=== PATIENT | female | born 1970 | race Caucasian/White ===

== ENCOUNTER 2016-10-03 13:15 | Emergency (ER) | payer SELFPAY ==
[~2016-10-03] VITALS: Ht 177.8 cm; Wt 79.5 kg
[~2016-10-03 13:15] MED LIST: AUGMENTIN875TAB PO; BENZONATATE200 MG PO; CEPHALEXIN500 M1 PO; CIPRO500 MG PO; CLARITIN10 M1 PO; CLARITIN10 MG OR; DOXYCYCL HYC100 MG PO; ENALAPRIL5 MG PO; MECLIZINE25 MG PO; MYCOLOG30 GM EX; NAPROXEN500 MG PO; NASONEX50 MCG/AC; NYSTATIN100000 M3 EX; PAXIL20 MG PO; PAXIL40 MG PO; PREDNISONE20 MG PO; RISPERDAL1 MG PO; TORADOL OR; TRAZODONE150 MG PO; TRIAM/NYSTAT TOP; ULTRAM50 M1 PO; XANAX0.5 MG PO
[2016-10-03 14:02] LABS: ALBUMIN 4.2 g/dL (3.2-5.0); ALKALINE PHOSPHATASE 30 u/l (38-126); BILIRUBIN, TOTAL 0.8 mg/dL (0.0-1.4); BUN 9 mg/dL (7-17); BUN/CREATININE RATIO 13 (12-20 (CALC)); CALCIUM 9.2 mg/dL (8.4-10.2); CARBON DIOXIDE 24 mmol/l (22-30); CHLORIDE 105 mmol/l (95-108); CREATININE 0.7 mg/dL (0.5-1.0); GFR > 60 ML/MIN (>=60 (CALC)); GFR FOR AFR.AMER. > 60 ML/MIN (>=60 (CALC)); GLUCOSE 140 mg/dL (65-105); SGOT/AST 47 u/l (14-36); SGPT/ALT 18 u/l (9-52); SODIUM 140 mmol/l (137-146); TOTAL PROTEIN 7.9 g/dL (6.3-8.2)
[2016-10-03 14:03] LABS: ANION GAP 16 (6-22 (CALC)); POTASSIUM 5.2 mmol/l (3.5-5.1)
[2016-10-03 14:14] LABS: MYOGLOBIN 18 ng/mL (0 - 62)
[2016-10-03 14:52] LABS: HEMATOCRIT 37.4 % (37.0-47.0); HEMOGLOBIN 12.8 g/dl (12.0-16.0); IMMATURE GRANULOCYTES 0.7 % (0.0-1.0); MEAN CELL VOLUME 82.7 fL CALC (80.0-100.0); MEAN CORPUSCULAR HGB 28.3 pG CALC (26.0-32.0); MEAN CORPUSCULAR HGB CONC 34.2 g/L CALC (32.0-36.0); NEUT# 5.07 thou/uL (2.00-7.15); RED BLOOD COUNT 4.52 mill/uL (4.20-5.60); RED CELL DISTRI WIDTH 15.8 % (11.5-15.5)
[2016-10-03] MEDS ORDERED: ASPIRIN 81 LOW81 MG PO (15:07)
[2016-10-03 15:14] VITALS: BP 154/76
== END 2016-10-03 15:26 | disposition left against medical advice (07) | DRG 313 ==
LOC: ED 13:15
PROVIDERS: Emergency Medicine
DX: R07.9 Chest pain, unspecified (principal); F32.9 Major depressive disorder, single episode, unspecified; F41.9 Anxiety disorder, unspecified; F17.210 Nicotine dependence, cigarettes, uncomplicated

== ENCOUNTER 2017-03-17 19:53 | Emergency (ER) | payer SELFPAY ==
[~2017-03-17] VITALS: Ht 177.8 cm; Wt 116.0 kg
[~2017-03-17 19:53] MED LIST changes: +ASPIRIN 81 LOW81 MG PO
[2017-03-17] MEDS ORDERED: ULTRAM50 M1 PO (21:13)
[2017-03-17 21:29] VITALS: BP 137/77
== END 2017-03-17 21:30 | disposition home or self-care (01) | DRG 556 ==
LOC: ED 19:53
DX: M79.672 Pain in left foot (principal)

== ENCOUNTER 2017-11-30 18:56 | Emergency (ER) | payer OTHER ==
[~2017-11-30] VITALS: Ht 177.8 cm; Wt 116.2 kg
[2017-11-30] MEDS ORDERED: VOLTAREN - GENE75 MG PO (19:28)
[2017-11-30 19:40] VITALS: BP 130/76
== END 2017-11-30 19:40 | disposition home or self-care (01) | DRG 563 ==
LOC: ED 18:56
DX: S39.012A Strain of muscle, fascia and tendon of lower back, initial encounter (principal); M16.12 Unilateral primary osteoarthritis, left hip; F17.210 Nicotine dependence, cigarettes, uncomplicated; X58.XXXA Exposure to other specified factors, initial encounter

== ENCOUNTER 2020-05-12 16:50 | Emergency (ER) | payer MEDICAID ==
[~2020-05-12] VITALS: Ht 177.8 cm; Wt 110.0 kg
[~2020-05-12 16:50] MED LIST changes: +VOLTAREN - GENE75 MG PO
[2020-05-12] MEDS ORDERED: VOLTAREN - GENE75 MG PO (20:04)
[2020-05-12 21:05] VITALS: BP 136/78
== END 2020-05-12 21:05 | disposition home or self-care (01) ==
LOC: ED 16:50
DX: S46.911A Strain of unspecified muscle, fascia and tendon at shoulder and upper arm level, right arm, initial encounter (principal); M19.042 Primary osteoarthritis, left hand; F17.200 Nicotine dependence, unspecified, uncomplicated; X50.0XXA Overexertion from strenuous movement or load, initial encounter; X50.9XXA Other and unspecified overexertion or strenuous movements or postures, initial encounter; Y93.89 Activity, other specified

== ENCOUNTER 2021-02-12 15:06 | Emergency (ER) | payer OTHER | END 2021-02-12 16:50 | disposition left against medical advice (07) | DRG 951 | LOC: ED 15:06 → LWOBS 16:50 | DX: Z53.21 Procedure and treatment not carried out due to patient leaving prior to being seen by health care provider (principal) ==

== ENCOUNTER 2023-08-05 11:50 | Emergency (ER) | payer OTHER ==
[~2023-08-05 11:50] MED LIST changes: +ACTOS15 MG PO; +ALPRAZOLAM ER1 MG PO; +BAYER ASPIRIN E81 MG PO; +KAPSPARGO SPRIN50 MG; +LOPID600 MG PO; +METFORMIN HYDR850 MG; +VENLAFAXINE HCL25 MG PO
== END 2023-08-05 14:10 | disposition home or self-care (01) | DRG 951 ==
LOC: ED 11:50 → LWOBS 14:10
DX: Z53.21 Procedure and treatment not carried out due to patient leaving prior to being seen by health care provider (principal)

== ENCOUNTER 2024-01-23 15:16 | Emergency (ER) | payer OTHER ==
[~2024-01-23] VITALS: Ht 162.6 cm; Wt 112.9 kg
[2024-01-23] VITALS (14 sets, daily range): BP systolic 117–153; BP diastolic 58–74
[2024-01-23 16:22] LABS: BASO% 0.3 % (0-3); EOS% 1.7 % (0-8); HEMATOCRIT 36.1 % (37.0-47.0); IMMATURE GRANULOCYTES 1.7 % (0.0-5.0); LYMPH% 27.7 % (15-41); MEAN CELL VOLUME 90.5 fL CALC (80.0-100.0); MEAN CORPUSCULAR HGB 29.1 pG CALC (26.0-32.0); MEAN CORPUSCULAR HGB CONC 32.1 g/dL CAL (32.0-36.0); MONO% 5.8 % (2-13); NEUT# 4.34 thou/uL (2.00-7.15); NEUT% 62.8 % (42-76); RED BLOOD COUNT 3.99 mill/uL (4.20-5.60)
[2024-01-23 16:30] LABS: HEMOGLOBIN 11.6 g/dl (12.0-16.0)
[2024-01-23 16:32] LABS: ALBUMIN 4.3 g/dL (3.2-5.0); ALKALINE PHOSPHATASE 49 u/l (38-126); ANION GAP 9 (6-22 (CALC)); BILIRUBIN, TOTAL 0.5 mg/dL (0.02-1.3); BUN 13 mg/dL (7-17); BUN/CREATININE RATIO 19 (12-20 (CALC)); CARBON DIOXIDE 24 mmol/l (22-30); CHLORIDE 109 mmol/l (95-108); CREATININE 0.7 mg/dL (0.5-1.0); ESTIMATED GFR 103 ML/MIN (>=90 (CALC)); POTASSIUM 3.9 mmol/l (3.5-5.1); SGOT/AST 27 u/l (14-36); SODIUM 138 mmol/l (137-146); TOTAL PROTEIN 7.5 g/dL (6.3-8.2)
[2024-01-23 16:34] LABS: HCG SERUM/URINE (NEG/POS) NEGATIVE (NEGATIVE)
== END 2024-01-23 21:05 | disposition left against medical advice (07) | DRG 204 ==
LOC: ED 15:16
PROVIDERS: Family Medicine
DX: R06.02 Shortness of breath (principal); I10 Essential (primary) hypertension; E11.9 Type 2 diabetes mellitus without complications; E66.01 Morbid (severe) obesity due to excess calories; F17.200 Nicotine dependence, unspecified, uncomplicated; Z53.29 Procedure and treatment not carried out because of patient's decision for other reasons; Z79.84 Long term (current) use of oral hypoglycemic drugs; Z20.822 Contact with and (suspected) exposure to COVID-19
CPT/HCPCS: Q9967

== ENCOUNTER 2024-02-03 16:15 | Emergency (ER) | payer OTHER ==
[~2024-02-03] VITALS: Ht 162.6 cm; Wt 106.5 kg
[2024-02-03 16:42] VITALS: BP 157/79
[2024-02-03 16:46] VITALS: BP 153/74
[2024-02-03 17:01] VITALS: BP 160/79
[2024-02-03] MEDS ORDERED: DEXAMETHASONE SOD. PHOSPHATE 10 MG/ML VIAL IM ONE (17:05)
[2024-02-03] MEDS ORDERED: METHOCARBAMOL 500 MG/TAB PO ONE (17:05)
[2024-02-03] MEDS ORDERED: KETOROLAC TROMETHAMINE 30 MG/ML SDV IM ONE (17:05)
[2024-02-03] MEDS ORDERED: traMADol HCL 50 MG/TAB PO ONE (17:05)
[2024-02-03] MEDS ORDERED: KEFLEX500 MG PO (18:24)
[2024-02-03] MEDS ORDERED: MUPIROCIN2 % EX (18:24)
[2024-02-03] MEDS ORDERED: TRAMADOL HYDROC50 M1 PO (18:24)
[2024-02-03] MEDS ORDERED: NAPROXEN500 MG PO (18:24)
[2024-02-03] MEDS ORDERED: METHOCARBAMOL500 MG PO (18:24)
[2024-02-03 19:05] VITALS: BP 144/78
== END 2024-02-03 19:13 | disposition home or self-care (01) | DRG 156 ==
LOC: ED 16:15
DX: H60.12 Cellulitis of left external ear (principal); I10 Essential (primary) hypertension; E66.9 Obesity, unspecified; F17.200 Nicotine dependence, unspecified, uncomplicated

== ENCOUNTER 2024-05-19 16:36 | Emergency (ER) | payer OTHER ==
[2024-05-19] VITALS (21 sets, daily range): BP systolic 131–176; BP diastolic 51–99
[~2024-05-19] VITALS: Ht 162.6 cm; Wt 113.0 kg
[~2024-05-19 16:36] MED LIST changes: +KEFLEX500 MG PO; +METHOCARBAMOL500 MG PO; +MUPIROCIN2 % EX; +TRAMADOL HYDROC50 M1 PO
[2024-05-19] MEDS ORDERED: ISOVUE-300 (Iopamidol) 100 ML SDV IV ONE (17:00)
[2024-05-19] MEDS ORDERED: KETOROLAC TROMETHAMINE 15 MG/ML SDV IV ONE (17:00)
[2024-05-19 17:34] LABS: BASO% 0.3 % (0-3); EOS% 1.2 % (0-8); LYMPH% 14.3 % (15-41); MEAN CORPUSCULAR HGB 26.8 pG CALC (26.0-32.0); MEAN CORPUSCULAR HGB CONC 32.4 g/dL CAL (32.0-36.0); MONO% 4.1 % (2-13); NEUT# 8.76 thou/uL (2.00-7.15); NEUT% 79.1 % (42-76); RED BLOOD COUNT 5.15 mill/uL (4.20-5.60); RED CELL DISTRI WIDTH 16.7 % (11.5-15.5)
[2024-05-19 17:39] LABS: HEMATOCRIT 42.6 % (37.0-47.0); HEMOGLOBIN 13.8 g/dl (12.0-16.0); MEAN CELL VOLUME 82.7 fL CALC (80.0-100.0)
[2024-05-19 17:46] LABS: ALBUMIN 4.4 g/dL (3.2-5.0); CREATININE 0.6 mg/dL (0.5-1.0); POTASSIUM 4.1 mmol/l (3.5-5.1); TOTAL PROTEIN 7.8 g/dL (6.3-8.2)
[2024-05-19 18:43] LABS: URINE BILIRUBIN - DIPSTICK Negative (NEGATIVE); URINE BLOOD DIPSTICK Negative (NEGATIVE); URINE GLUCOSE - DIPSTICK >=1000 mg/dL (NEGATIVE); URINE KETONE Trace mg/dL (NEGATIVE); URINE LEUK ESTERASE Negative (NEGATIVE); URINE NITRITE - DIPSTICK Negative (Negative); URINE PH 5.5 (4.5-8.0); URINE PROTEIN - DIPSTICK 100 mg/dL (NEG-TRACE); URINE SPECIFIC GRAVITY >=1.030; URINE UROBILINOGEN - DIPSTICK 0.2 E.U./dL (0.2)
[2024-05-19 18:45] LABS: URINE COLOR Yellow
[2024-05-19 18:46] LABS: URINE RBC 0-2 RBC/hpf (0-5); URINE SQUAMOUS EPITHELIAL CELL FEW EPI/hpf (0-FEW)
[2024-05-19] MEDS ORDERED: SODIUM CHLORIDE 0.9% 1,000 ML IV ONE (21:05)
[2024-05-19] MEDS ORDERED: INSULIN REGULAR (HUMAN) 100 UNIT/ML INJ SC ONE (21:20)
[2024-05-19] MEDS ORDERED: HYDROmorphone HCL 2 MG/AMP IV ONE (21:55)
[2024-05-19] MEDS ORDERED: ACETAMINOPHEN 325 MG/TAB PO PRN (21:55)
[2024-05-19] MEDS ORDERED: ONDANSETRON HCl 4 MG/2 ML SDV IV ONE (21:55)
[2024-05-19] MEDS ORDERED: MORPHINE SULFATE 4 MG/ML VIAL IV PRN (21:55)
[2024-05-19] MEDS ORDERED: LACTATED RINGER'S 1,000 ML IV PRN (21:55)
[2024-05-19] MEDS ORDERED: MAGNESIUM HYDROXIDE 30 ML UDC PO PRN (21:55)
[2024-05-19] MEDS ORDERED: ONDANSETRON HCl 4 MG/2 ML SDV IV PRN (21:55)
[2024-05-19] MEDS ORDERED: Pantoprazole Sodium 40 MG VIAL (Protonix) IV SCH (22:00)
[2024-05-19] MEDS ORDERED: ALPRAZolam 0.5 MG/TAB PO PRN (22:00)
[2024-05-20] MEDS ORDERED: INSULIN LISPRO 100 UNITS/ML ML SC SCH (07:00)
[2024-05-20] MEDS ORDERED: VENLAFAXINE HYDROCHLORIDE 75 MG/CAP PO SCH (09:00)
[2024-05-20] MEDS ORDERED: METOPROLOL TARTRATE 50 MG/TAB PO SCH (09:00)
[2024-05-20] MEDS ORDERED: busPIRone HCL 5 MG/TAB PO SCH (09:00)
[2024-05-20] MEDS ORDERED: ENOXAPARIN SODIUM 40 MG/0.4 ML SYR SC SCH (21:00)
== END 2024-05-19 22:20 | disposition left against medical advice (07) ==
LOC: ED 16:36 → ED-I 21:25 → ED 22:20
PROVIDERS: Family Medicine
DX: K85.90 Acute pancreatitis without necrosis or infection, unspecified (principal); I10 Essential (primary) hypertension; E11.9 Type 2 diabetes mellitus without complications; E66.01 Morbid (severe) obesity due to excess calories; E78.00 Pure hypercholesterolemia, unspecified; F17.210 Nicotine dependence, cigarettes, uncomplicated; Z53.29 Procedure and treatment not carried out because of patient's decision for other reasons
CPT/HCPCS: Q9967

== ENCOUNTER 2024-08-14 20:58 | Emergency (ER) | payer SELFPAY ==
[~2024-08-14] VITALS: Ht 162.6 cm; Wt 111.4 kg
[2024-08-14 22:18] VITALS: BP 161/80
[2024-08-14 23:00] VITALS: BP 153/78
[2024-08-14] MEDS ORDERED: TRAMADOL HYDROC50 M1 PO (23:27)
[2024-08-14] MEDS ORDERED: traMADol HCL 50 MG/TAB PO ONE (23:30)
[2024-08-15] VITALS: BP 149/70
[2024-08-15 00:03] VITALS: BP 149/70
== END 2024-08-15 00:03 | disposition home or self-care (01) | DRG 566 ==
LOC: ED 20:58
DX: M77.32 Calcaneal spur, left foot (principal); M77.31 Calcaneal spur, right foot; I10 Essential (primary) hypertension; E11.9 Type 2 diabetes mellitus without complications; E78.00 Pure hypercholesterolemia, unspecified; F17.210 Nicotine dependence, cigarettes, uncomplicated; Z79.84 Long term (current) use of oral hypoglycemic drugs